=== PATIENT | female | born 1960 | race Caucasian/White ===

== ENCOUNTER → 2018-09-03 | Outpatient (CLI) | payer OTHER ==
[~2018-09-03] VITALS: Ht 170.2 cm; Wt 72.6 kg
[~2018-09-03] MED LIST: ADULT LOW DOSE81 MG PO; ASPIR 8181 MG PO; ASPIRIN EC81 M1 PO; BUSPIRONE HCL10 MG; CELEXA20 MG PO; CLARITIN10 M2 PO; CLARITIN10 MG PO; CLONAZEPAM; CLONAZEPAM 0.50.5 M1 PO; COLACE100 MG PO; CYMBALTA PO; CYMBALTA20 MG PO; CYMBALTA30 MG PO; CYMBALTA60 MG PO; DESYREL150 MG PO; DIFLUCAN100 MG PO; ESTRACE1 MG PO; ESTRADIOL 1 MG T1 MG PO; FLONASE 0.05%50 MCG NASAL; KEFLEX500 MG PO; LINZESS290 MCG PO; LISINOPRIL10 MG PO; LOVASTATIN PO; MAGOX 400400 MG PO; MEVACOR 20 MG T20 MG; MOBIC7.5 MG PO; MS CONTIN 100100 MG PO; MS CONTIN 60 MG60 M1 PO; MS CONTIN 60 MG60 MG PO; MS CONTIN15 MG; NEURONTIN300 MG PO; NEURONTIN600 MG PO; OXYCODONE HCL10 MG PO; OXYCODONE HCL15 MG PO; OXYCODONE HCL30 MG PO; OXYCONTIN10 M1 PO; OXYCONTIN30 MG PO; PROAIR RESPICL90 MCG INH; PROTONIX40 M2 PO; PULMICORT0.25 MG/3 INH; ROXICODONE15 M1 PO; STOOL SOFTENER1 EAC2; TRAZODONE 150150 M1 PO; TRAZODONE HCL100 MG PO; VITAMIN D 5050000 I1 PO; ZANAFLEX4 MG PO
--- NOTE | ~2018-09-03 | HPC ---
[facility] [place] [address] PAIN MANAGEMENT CONSULTATION Name: GALEN RUSSELL Room #: REG [facility].#: [id number] Admission: 09/03/18 ������������������ Attend Phys: Mayur Bui DO Discharge: ������������������ Date of : 58 Report #: [id number] THIS REPORT FOR: //name// CC: Jessika Beltran ANP Mayur Michel DATE OF SERVICE: 09/03/2018 REFERRING NURSE PRACTITIONER: KATHARINA Myers. CHIEF COMPLAINT: Low back pain, left upper buttock and posterolateral thigh pain. HISTORY OF PRESENT ILLNESS: As you know, the patient is a 58-year-old female who has been referred to our clinic by nurse practitioner, Jessika Beltran with [facility] for the patient to trial a left sacroiliac joint injection. The patient has had extensive lumbar surgery, undergoing L4-L5 decompressive laminectomy and posterolateral fusion with instrumentation on 10/30/2017. Unfortunately, the patient continued to experience left buttock and posterolateral thigh pain, for which the patient was re-evaluated on 08/20/2018. It was determined that the patient may be suffering from sacroiliac joint dysfunction and was sent to our clinic to try an SI joint injection. The patient indicates no injury or trauma that may have led to the symptom development. She is reporting pain today at a level of 7/10. She states the pain is making it difficult to walk. She has even had some falls secondary to this issue. She has been referred back to our clinic by nurse practitioner, Jessika Beltran for the patient to undergo a left SI joint injection to determine if this is the source of her current symptoms. PAST MEDICAL HISTORY: Hypertension, GERD, coronary artery disease, hypothyroidism, osteoarthritis, avascular necrosis of the hips, osteoporosis, depression, weight gain, dizziness and sinus issues. PAST SURGICAL HISTORY: 1. Appendectomy. 2. Cholecystectomy. 3. Tubal ligation. 4. Hysterectomy 5. Decompression of the spinal cord. 6. Spinal cord stimulator implant and removal, 2010. 7. L4-L5 decompression with instrumentation. CURRENT MEDICATIONS: MS Contin 60 mg 3 times a day, oxycodone 10 mg q. 6 hours, citalopram 20 mg once a day, vitamin D 50,000 units once daily, trazodone 50 mg p.o. at bedtime, Senokot 1 tab p.o. at bedtime, Protonix 40 mg per day, [place] [address] PAIN MANAGEMENT CONSULTATION Name: GALEN RUS[facility]LL [id number] Admission: 09/03/18 ������������������ Attend Phys: Mayur Bui DO Discharge: ������������������ Date of : 58 Report #: [id number] Neurontin 600 mg 3 times a day, lisinopril 10 mg per day, Flonase 1 spray each nostril per day, albuterol 2 puffs q. 4 hours p.r.n., Astelin spray 1 puff each nostril twice a day, ProAir p.r.n., Mucinex 600 mg p.r.n., buspirone 15 mg twice a day and metformin 500 mg twice a day. SOCIAL HISTORY: The patient is a current every day smoker, smoking up to 1-1/2 packs per day; she is down from nearly 3 packs a day. She reports no use of alcohol. She indicates no IV or illicit drug use. She participates in no exercise activity. She reports herself as disabled. She is unaccompanied today. IMAGING: No imaging available. PQRS REVIEW: The patient has generalized osteoarthritis involving cervical spine, lumbar spine, bilateral hips, bilateral knees and bilateral hands. No rheumatoid arthritis. She is placing pain intensity at 7/10. She is a fall risk and has had multiple falls within the last 3 months. She does use ambulatory device in the form of a roller walker. She is not on blood thinners, but is treated for hypertension. She is on high-dose opioid therapy, receiving 60 mg of morphine 3 times a day along with breakthrough pain in the form of oxycodone up to 4 times a day. She has a moderate risk of opioid addiction based on her addiction tool. Pain impact 53/70, indicating severe near complete interference of daily activities secondary to pain. PHYSICAL EXAMINATION: VITAL SIGNS: Blood pressure 150/77, pulse is 80, respiratory rate 16 and unlabored. The patient is 96% on room air. Height 5 feet 7 inches tall, weight 160 pounds and BMI calculated 25.1. GENERAL: Well-developed, well-nourished and well-hydrated 58-year-old female, who appears much older than stated age, smells strongly of tobacco smoke, placing current pain score at 7/10. HEENT: Normocephalic, atraumatic. Pupils appear equal, round and reactive. Speech is fluent for the patient. LUNGS: Decreased breath sounds bilaterally, prolonged expiratory phase. There is wheezing noted and expiration. CARDIOVASCULAR: Regular. No appreciable gallop or rub. ABDOMEN: Soft. Bowel sounds appear normal. EXTREMITIES: Show potentially mild clubbing. No cyanosis, no edema. MUSCULOSKELETAL: Lower extremity strength appears symmetrical at 5/5. Giveaway strength noted with hip flexion on the left when compared to the right. This generates pain over the sacroiliac joint and into the groin. Seated straight leg raising negative. Supine straight leg raising is negative for any radicular component. Jone's test is positive bilaterally, left greater than right. SI joint dysfunction noted as well. Gait antalgic, favoring left lower extremity over right. There is deconditioning noted in bilateral lower extremities, though muscle bulk and tone are equal and symmetrical. Ankle clonus negative. [facility] [address] [place] [address] PAIN MANAGEMENT CONSULTATION Name: GALEN RUSSELL Room #: REG [facility].#: [id number] Admission: 09/03/18 ������������������ Attend Phys: Mayur Bui DO Discharge: ������������������ Date of : 58 Report #: [id number] Babinski is negative. DTRs are positive, 2+/4 at patella and Achilles. ASSESSMENT: 1. Left sacroiliac joint dysfunction. 2. Osteoarthritis of the sacroiliac joint bilaterally. 3. Chronic back pain. 4. Opioid dependency. 5. Severe tobacco habituation. 6. Chronic intractable pain. PLAN: 1. Based on today's physical exam, the history the patient has provided, the description the patient uses in regards to pain as well as location of symptoms that she is experiencing and exacerbating factors that lead to increased pain and those activities that alleviate symptoms, the likely source of the patient's pain is an SI joint dysfunction. The patient has extensive changes in the lumbar spine and has had to undergo different types of surgeries, the most recent being a L4-L5 fusion with posterior instrumentation. Even with these procedures, her pain remains intolerable. She sought evaluation through Neurosurgery, who then referred the patient to our clinic for SI joint injection on the left side. The patient has been advised of the risks and benefits of a left SI joint injection. These risks include but are not necessarily limited to bleeding, bruising, infection, worsening pain, no relief of pain, also risk of temporary or permanent muscle weakness, temporary or permanent nerve damage, possible paralysis, joint destruction and . The patient states understood and wished to proceed. 2. The patient and I had a very long discussion today about smoking cessation. The patient has smoked up to 3 packs of tobacco per day. There are direct links noted in multiple studies linking chronic smoking to chronic pain propagation. The patient could improve her overall symptoms if she discontinues this activity. She has been addicted to tobacco for most of her life and this would be a difficult proposition but, in my opinion, it would be an excellent way to alleviate some of the symptoms she is experiencing and improve her overall health. The patient needs to consider this option as she is exacerbating her own pain. We discussed this in conjunction with the new opioid guidelines, restricting opioid use to no more than 90 morphine equivalents a day. This number will ultimately be decreased further with the plans to potentially take patients off of opioids entirely. The patient needs to do appropriate things with her social activities to improve her condition and situation. 3. We will see the patient back in followup visit on an as-needed basis for possible next in the series of left SI joint injections. The patient is to contact [facility]'s nurse practitioner, Katie Beltran, to advise of the efficacy of today's injection. We wish to thank Katie Beltran for the referral of patient to our clinic. We will keep you apprised of her response to treatment as we address suspected SI [facility] [address] [place] [address] PAIN MANAGEMENT CONSULTATION Name: GALEN RUSSELL Room #: REG CL [facility]#: [id number] Admission: 09/03/18 ������������������ Attend Phys: Mayur Bui DO Discharge: ������������������ Date of : 58 Report #: [id number] joint dysfunction on the left side. Again, we wish to thank you for the opportunity to see the patient in consultation. PROCEDURE NOTE PROCEDURE: Left SI joint injection under fluoroscopic guidance. This is the first procedure of the first series that the patient is undergoing. After obtaining written consent, the patient was taken back to the fluoroscopy suite and placed in a prone position with a pillow under the pelvis to decrease the lumbar lordosis. The skin of the gluteal-sacral area overlying the left sacroiliac joint was prepped and draped in an aseptic fashion. A medial to lateral oblique projection allowed separation of the anterior and posterior branches of the joint space. The skin and subcutaneous tissue overlying the target site of injection was anesthetized using 3 mL of 1% lidocaine. A 22-gauge 3-1/2 inch needle with a bent tip was directed into the inferior aspect of the sacroiliac joint using a posterior approach. A giving way at the needle hub was noted once the dorsal sacroiliac and interosseous ligaments were engaged. After negative aspiration for heme, a total of 1 mL of Omnipaque was injected, outlining the coin-shaped inferior recess of the joint. Provocation responses consisting of intense buttock pain were negative. After negative aspiration for heme, 3 mL of a solution containing 1 mL of 40 mg per mL 40 mg total triamcinolone, 2 mL bupivacaine 0.5% was slowly injected. The needle was then retracted approximately snf and the needle track was flushed with 1 mL of 1% lidocaine. Needle was then removed. A sterile bandage was placed over the injection site. There were no new sensory deficits present in the lower extremities. The heart rate, pulse oximetry and blood pressure were continuously monitored after the procedure. There were no apparent complications. The patient tolerated the procedure well and was carefully escorted to the recovery room in stable condition. The VAS was 7/10 before the procedure and 0/10 ten minutes after the procedure. After meeting discharge criteria, the patient was discharged home. ��������������������������������������������� ���������������������������������������� By: ��������������������������������������������� [id number] Mayur Bui DO /nt
[2018-09-03 09:54] VITALS: BP 158/77
--- NOTE | 2018-09-03 10:20 | NUR ---
Pain Clinic Assessment: 1. History of Osteoarthritis: GENERALIZED History of Rheumatoid Arthritis: Not Applicable 2. Height: 5 ft. 7 in. 170.2 cm. Weight: 160.0 lb. oz. 72.576 kg. Patient's BMI: 25.1 3. Vital Signs: BP: 158/77 Pulse: 80 Resp: 16 Temp: 02 Sat: 96 ECG Mon: 4. Pain Intensity: 7 5. Fall Risk: Dizziness: N Needs help standing or walking: Y Fallen in the last 3 months: Y Fall risk comments: 6. Patient on Blood Thinner: None 7. History of Hypertension: Y 8. Opioid Therapy greater than 6 weeks: Y Opiate Contract Signed: 9. Risk Assessment Tool Provided: LOW RISK 03/20 10. Functional Assessment Tool: 11. Recreational Drug Use: Never Drug Type: Tobacco Use: Current Some Day Smoker Tobacco Type: Cigarettes Amount or Packs/day: 2 How Many Years: 35 Alcohol Use: No Frequency: Quant:
== END | disposition home or self-care (01) ==
LOC: PAIN 06:49
DX: M53.3 Sacrococcygeal disorders, not elsewhere classified (principal); M54.5 Low back pain; G89.29 Other chronic pain; I10 Essential (primary) hypertension; I25.10 Atherosclerotic heart disease of native coronary artery without angina pectoris; K21.9 Gastro-esophageal reflux disease without esophagitis; E03.9 Hypothyroidism, unspecified; M19.90 Unspecified osteoarthritis, unspecified site; F32.9 Major depressive disorder, single episode, unspecified; M81.0 Age-related osteoporosis without current pathological fracture; F11.20 Opioid dependence, uncomplicated; F17.210 Nicotine dependence, cigarettes, uncomplicated; Z90.49 Acquired absence of other specified parts of digestive tract; Z90.710 Acquired absence of both cervix and uterus; Z98.51 Tubal ligation status; Z98.890 Other specified postprocedural states; Z79.899 Other long term (current) drug therapy